=== PATIENT | female | born 1995 | race Caucasian/White ===

== ENCOUNTER 2020-05-10 00:47 | Emergency (ER) | payer SELFPAY ==
[2020-05-10 00:51] VITALS: BP 112/73; PULSE 104; RESP 18; TEMP 36.4; O2SAT 97; BMI 34.5
--- NOTE | 2020-05-10 01:07 | ED_ITS ---
HPI - Allergic Reaction General: Chief complaint: Allergic Reaction Stated complaint: rash Time Seen by Provider: 05/10/20 00:59 History of Present Illness: HPI narrative: Patient comes in today for a wasp sting to the left shoulder. Patient is also been drinking some alcohol. Patient has not taken anything for this food and now developing rash. Patient states that this evening she had been drinking and she noticed a increase in her rash with redness spreading across her body. Patient denies any problems breathing or difficulty swallowing. Patient appears well. Patient appears in no acute distress. Review of Systems General: Reports: 10 or more systems reviewed and unremarkable except in HPI and below Skin/Breast: Reports: rash Physical Exam Const: COMMON NORMALS: no acute distress and patient oriented x3 GENERAL APPEARANCE: cooperative HENMT: COMMON NORMALS: normocephalic, TM's normal bilaterally and Normal external nose present HEAD & SCALP: normal to inspection and normocephalic NOSE: Normal external nose present TYMPANIC MEMBRANE: TM's normal bilaterally MOUTH: Normal oral and palatal mucosa present THROAT: posterior oropharynx normal Eye: GENERAL EYE: appearance normal, both eyes and all related structures Neck/C-Spine: COMMON NORMALS: full ROM Lymph: LYMPHATIC: no lymphadenopathy noted Chest: COMMONS NORMALS: normal inspection of the chest Resp: COMMON NORMALS: normal respiratory effort EFFORT & INSPECTION: Yes able to speak in complete sentences Cardio: COMMON NORMALS: regular rate and regular rhythm RATE: regular rate RHYTHM: regular rhythm GI: COMMON NORMALS: non-tender : COMMON NORMALS: Yes no CVA tenderness BLADDER/KIDNEY EXAM: Yes no CVA tenderness Back/Pelvis: COMMON NORMALS: no CVA tenderness and thoracic and lumbar spine normal to inspection Extremity: COMMON NORMALS: normal to inspection Neuro: COMMON NORMALS: patient oriented x3 and moves all extremities Psych: COMMON NORMALS: mental status grossly normal and cooperative Skin: NARRATIVE SKIN EXAM: Patient has a generalized urticarial rash to the body. Patient has a sting lauren with a small punctate lesion and blister to the left shoulder. Most likely this is a sting from a hornet or yellowjacket. Course Vital Signs: Vital signs: Vital Signs Temperature 97.6 F 05/10/20 00:51 Pulse Rate 104 H 05/10/20 00:51 Respiratory Rate 18 05/10/20 00:51 Blood Pressure 112/73 05/10/20 00:51 Pulse Oximetry 97 07/26/20 00:51 MDM - Allergic Reaction MDM Narrative: Medical decision making narrative: Patient comes in today with complaints of itching and a rash across her whole body. Patient appears well. Lungs are clear to auscultation. Vital signs are normal with good oxygen saturation. On exam we note a sting/insect bite to the left upper shoulder. We also note a generalized urticarial rash to the body and extremities. Differential diagnosis includes but not limited to allergic reaction to insect sting, histamine reaction to alcohol or food product. Patient was given 50 mg of Benadryl and 60 mg of prednisone. Patient was encouraged to drink plenty of fluids with medications. Patient will be continued on prednisone 20 mg twice a day for the next 5 days along with Benadryl 25 mg every 4 hours as needed for itching and rash. Patient reported understanding of care plan and need for follow-up. Discharge Plan Discharge Patient Disposition: Home Clinical Impression: Accidental wasp sting Allergic reaction Qualifiers: Encounter type: initial encounter Qualified Code(s): T78.40XA - Allergy, unspecified, initial encounter Condition: Stable Prescriptions: New diphenhydramine HCl 25 mg capsule 25 mg PO Q4H PRN (Reason: rash and itching) Qty: 30 RF: 0 prednisone 20 mg tablet 20 mg PO BID 5 Days Qty: 10 RF: 0 Referrals: Love Mello MD [Primary Care Provider] - Discharge Diet: Usual diet Discharge Activity: Increase activity as tolerated Patient Instructions: Insect Bite or Sting (ED) Activity Restrictions/Additional Instructions: Drink plenty of fluids. Take steroid twice a day for 5 days. Take diphenhydramine, Benadryl, 25 mg capsule 1 or 2 every 4-6 hours as needed for itching or rash. Drink plenty of water with medication. Use acetaminophen or ibuprofen for pain. Return to the emergency room for difficulty breathing or swallowing. Follow-up with primary care as needed. Stay in a cool environment. Avoid acidic or spicy foods. Avoid rigorous activity. These precautions are recommended as they will increase histamine response and cause an increase in the rash and symptoms. Coding Level of Care Code ED [facility] Firer/Fireman for Kaushik Malave
[2020-05-10] MEDS: diphenhydrAMINE 50 mg Capsule PO (01:08)
[2020-05-10] MEDS: predniSONE 20 mg Tablet 60 MG PO (01:08)
== END 2020-05-10 02:01 | disposition home or self-care (01) ==
PROVIDERS: Emergency Provider Nurse Practitioner Family; PCP Family Medicine
DX: T63.461A Toxic effect of venom of wasps, accidental (unintentional), initial encounter (principal)
CPT/HCPCS: 12345; 99282; 99283; J7512; Q0163

== ENCOUNTER 2020-05-11 10:59 | Emergency (ER) | payer SELFPAY ==
[2020-05-11 11:07] VITALS: BP 106/67; PULSE 99; RESP 18; TEMP 36.7; O2SAT 98; BMI 34.9
--- NOTE | 2020-05-11 11:17 | ED_ITS ---
HPI - Skin/Abscess/Foreign Bdy General: Chief complaint: Skin/Abscess/Foreign Body Stated complaint: LEFT SHOULDER SPIDER BITE? Time Seen by Provider: 05/11/20 11:14 History of Present Illness: HPI narrative: Patient is a 24-year-old female that comes to the ED with pain in redness on the left shoulder. Patient was seen here in the ED on 10 May and treated for wasp/yellowjacket sting. She was given a prescription for diphenhydramine and prednisone to help with pruritic rash. Patient comes to the ED today because she now has pain in the left shoulder with some redness and warmth of the skin as well. Associated symptoms: Deny chills, fever(s), nausea or vomiting Review of Systems Const: Denies: fever(s), chills or fatigue Eyes: Denies: change in vision or eye discomfort ENMT: Denies: throat pain, odynophagia, nasal discharge or nasal congestion Card: Denies: chest pain, palpitations, edema, swelling of feet/ankles, dyspn ea on exertion or orthopnea Resp: Denies: dyspnea, productive cough or non-productive cough GI: Denies: abdominal pain, nausea, vomiting, diarrhea, constipation or hematochezia : Denies: flank pain, dysuria or hematuria Musc: Denies: neck pain, back pain or extremity swelling Skin/Breast: Reports: rash (Pruritic rash on thighs.) and new lesions (Lesion on left shoulder now has an in warm and hard and painful.) Neuro: Denies: headache(s), numbness in extremities or weakness in extremities Physical Exam Const: COMMON NORMALS: no acute distress, patient oriented x3 and alert GENERAL APPEARANCE: cooperative and comfortable HENMT: COMMON NORMALS: normocephalic HEAD & SCALP: normocephalic MOUTH: Normal oral and palatal mucosa present THROAT: posterior oropharynx normal and uvula midline Eye: COMMON NORMALS: Equal, round and reactive pupils present PUPIL: Yes Equal, round and reactive pupils present Neck/C-Spine: COMMON NORMALS: supple GENERAL: Yes normal visual inspection Resp: COMMON NORMALS: normal respiratory effort, No retractions, No use of accessory muscles and clear to auscultation bilaterally AUSCULTATION: clear to auscultation bilaterally Cardio: COMMON NORMALS: regular rate, regular rhythm, S1 normal heart sound present, S2 normal heart sound present, No gallops present (Cardio), No clicks present (Cardio), No murmurs present (Cardio) and Peripheral pulses 2+ throughout RATE: regular rate RHYTHM: regular rhythm HEART SOUNDS: S1 normal heart sound present and S2 normal heart sound present PERIPHERAL PULSES: Peripheral pulses 2+ throughout GI: COMMON NORMALS: Normal to inspection, nondistended, normoactive bowel sounds present, Soft to palpation, non-tender and no masses PALPATION: Yes Soft to palpation : COMMON NORMALS: Yes no CVA tenderness BLADDER/KIDNEY EXAM: Yes no CVA tenderness Back/Pelvis: COMMON NORMALS: no CVA tenderness Extremity: GENERAL: Yes normal exam except as noted LEFT UPPER EXTREMITY: Yes shoulder joint Left shoulder joint: Yes inspection (Left shoulder has an area of skin that has erythema, warmth and is tender to the touch. It is also nonfluctuant and indurated.) Neuro: COMMON NORMALS: patient oriented x3 and moves all extremities SENSORIUM/ORIENTATION: Yes alert Skin: NARRATIVE SKIN EXAM: Left shoulder has an area of skin that has erythema, warmth and is tender to the touch. It is also nonfluctuant and indurated. Lesion on left shoulder suggestive of cellulitis. Patient also has pruritic hives-like rash on thighs. GENERAL SKIN EXAM: dry skin Course Vital Signs: Vital signs: Vital Signs Temperature 98.1 F 05/11/20 11:07 Pulse Rate 99 05/11/20 11:07 Respiratory Rate 18 05/11/20 11:07 Blood Pressure 106/67 05/11/20 11:07 Pulse Oximetry 98 05/11/20 11:07 MDM - Skin/Abscess/Foreign Bdy MDM Narrative: Medical decision making narrative: Patient is a 24-year-old female comes to the ED with lesion on left shoulder and pruritic rash on thighs. Patient was seen here in the ED on May 10 for same complaint. She was diagnosed with wasp sting and sent home with a prescription of prednisone and diphenhydramine for pruritic rash. Physical exam shows left shoulder lesion with skin that is warm, erythematous and tender to the touch. Area is also nonfluctuant and indurated. Patient also has pruritic hives-like rash on thighs which she currently is taking diphenhydramine and prednisone to treat. Patient diagnosed with cellulitis and sent home with a prescription for cephalexin. Patient currently is taking diphenhydramine and prednisone for pruritic rash. Patient told to follow-up with PCP in 5 to 7 days for reevaluation. Return to the ED if symptoms worsen. Patient understood and agreed with plan. Discharge Plan Discharge Patient Disposition: Home Clinical Impression: Cellulitis Qualifiers: Site of cellulitis: extremity Site of cellulitis of extremity: axilla Laterality: left Qualified Code(s): L03.112 - Cellulitis of left axilla Condition: Stable Prescriptions: New cephalexin 500 mg capsule 500 mg PO TID 7 Days Qty: 21 RF: 0 No Action diphenhydramine HCl 25 mg capsule 25 mg PO Q4H PRN (Reason: rash and itching) Qty: 30 RF: 0 prednisone 20 mg tablet 20 mg PO BID 5 Days Qty: 10 RF: 0 Discharge Orders: Discharge Order (Routine); Ordered 05/11/20 Ordered By: Osbaldo Lopez Referrals: Love Mello MD [Primary Care Provider] - Discharge Diet: Regular Discharge Activity: Resume usual activity Patient Instructions: Cellulitis (ED) Activity Restrictions/Additional Instructions: Follow-up with medical provider as directed in 7 days. Take medications as prescribed. Continue taking previously prescribed prednisone and Diphenhydramine to help with itchy rash. Return to the ER or your medical provider if condition worsens. Please read and understand discharge instructions. If any questions, please ask. Discharge Date/Time: 05/11/20 11:48 Coding Level of Care Code ED Potline Monitor for Kaushik Fwjosh Exam Comprehensive
[2020-05-11] MEDS: HYDROcodone-acetaminophen 7.5-325 mg Tablet 1 TAB PO (11:44)
[2020-05-11] MEDS: cephALEXin 500 mg Capsule PO (11:44)
== END 2020-05-11 11:48 | disposition home or self-care (01) ==
PROVIDERS: Emergency Provider Physician Assistant; PCP Family Medicine
DX: L03.112 Cellulitis of left axilla (principal)
CPT/HCPCS: 12345; 99281; 99283

== ENCOUNTER → 2020-06-25 11:00 | Outpatient (BNVA) | payer MEDICAID, SELFPAY | PROVIDERS: PCP Family Medicine; Visit Provider Internal Medicine | DX: Z11.59 Encounter for screening for other viral diseases (principal) | CPT/HCPCS: 87635 ==

== ENCOUNTER → 2020-10-20 15:36 | Outpatient (BNVA) | payer OTHER, SELFPAY | PROVIDERS: PCP Family Medicine; Visit Provider Nurse Practitioner Family | DX: Z20.828 Contact with and (suspected) exposure to other viral communicable diseases (principal) | CPT/HCPCS: 87635 ==

== ENCOUNTER → 2021-10-27 16:39 | Outpatient (BNVA) | payer BC, MEDICAID, SELFPAY | PROVIDERS: PCP Family Medicine; Visit Provider Nurse Practitioner Family | DX: Z20.822 Contact with and (suspected) exposure to COVID-19 (principal) | CPT/HCPCS: 87635 ==

== ENCOUNTER 2023-04-04 20:50 | Emergency (ER) | payer BC, MEDICAID, SELFPAY ==
[2023-04-04 20:57] VITALS: BP 130/72; PULSE 101; RESP 18; TEMP 36.7; O2SAT 97
--- NOTE | 2023-04-04 21:20 | W.ED.SKABFB ---
HPI - Skin/Abscess/Foreign Bdy General: Chief complaint: Skin/Abscess/Foreign Body Stated complaint: pain in left armpit Time Seen by Provider: 04/04/23 21:04 History of Present Illness: 27-year-old female comes in today with swelling and redness to the left axilla. Patient reports history of prior abscess. Patient denies any chronic medical problems. Patient appears nontoxic. Patient appears in mild to moderate pain. Associated symptoms: Deny fever(s) Review of Systems General: Reports: 10 or more systems reviewed and unremarkable except in HPI and below Const: Denies: fever(s) Musc: Reports: extremity pain Skin/Breast: Reports: erythema Physical Exam Const: COMMON NORMALS: patient oriented x3 HENMT: COMMON NORMALS: normocephalic HEAD & SCALP: normocephalic Neck/C-Spine: COMMON NORMALS: full ROM Resp: COMMON NORMALS: normal respiratory effort and clear to auscultation bilaterally AUSCULTATION: clear to auscultation bilaterally Cardio: COMMON NORMALS: regular rate and regular rhythm RATE: regular rate RHYTHM: regular rhythm Back/Pelvis: COMMON NORMALS: thoracic and lumbar spine normal to inspection Extremity: LEFT UPPER EXTREMITY: Yes upper arm (Left axilla with erythema approximately 6 cm x 3 cm central fluctuant) Neuro: COMMON NORMALS: patient oriented x3 Skin: LESIONS: lesion noted (Abscess left axilla) Procedures Abscess I/D Site: upper extremity Side (if applicable): left Local Anesthetic: lidocaine 1% and with epi Amount of anesthesia used (mL): 10 Technique: incised with #11 blade Amount of fluid expressed (mL): 30 Irrigation: Yes Packing used?: none Course Vital Signs: Vital signs: Vital Signs Temperature 98.0 F 04/04/23 20:57 Pulse Rate 101 H 04/04/23 20:57 Respiratory Rate 18 04/04/23 20:57 Blood Pressure 130/72 04/04/23 20:57 Pulse Oximetry 97 04/04/23 20:57 Oxygen Delivery Me thod Room Air 04/04/23 20:57 MDM - Skin/Abscess/Foreign Bdy Medicial Decision Making 27-year-old female comes in today with abscess to the left axilla. On exam patient has an area of redness with central fluctuance. Differential diagnosis includes but not limited to cellulitis, abscess, lymphadenitis, thrombophlebitis. Incision and drainage was performed on the area with positive purulent drainage and improvement of pain. Patient tolerated well. Patient be kept on clindamycin 450 twice a day for 7 days. Patient was given 5 tablets of hydrocodone for severe pain. Patient reported understanding of care plan and need for follow-up or return to the ER. Discharge Plan Discharge Patient Disposition: Home Clinical Impression: Abscess of skin or subcutaneous tissue Qualifiers: Site of cutaneous abscess: extremity Site of cutaneous abscess of extremity: axilla Laterality: left Qualified Code(s): L02.412 - Cutaneous abscess of left axilla Condition: Stable Prescriptions: New clindamycin HCl 150 mg capsule 450 mg PO 2XD 7 Days Qty: 42 0RF hydrocodone-acetaminophen 5-325 mg tablet 1 tab PO Q8H PRN (Reason: pain (scale score 7-10)) Qty: 5 0RF Discharge Orders: Discharge ED (Routine); Ordered 04/04/23 Ordered By: José Luis Rushing Referrals: Love Mello MD [Primary Care Provider] - Discharge Diet: Usual diet Discharge Activity: Increase activity as tolerated Patient Instructions: Abscess Incision and Drainage (DC), Opioid Safety Activity Restrictions/Additional Instructions: Cover wound with dressing while it is draining. Use absorbent gauze. Drink plenty of water with medication. Follow-up with primary care as needed. Return to ED for worsening symptoms such as high fever greater than 100.4, nausea and vomiting, severe swelling and pain. Coding Level of Care Code ED Sweet Pickle Maker for Kaushik Malave
[2023-04-04] MEDS: ondansetron 4 MG Tablet PO (22:10)
[2023-04-04] MEDS: clindamycin 150 mg Capsule 450 MG PO (22:10)
[2023-04-04] MEDS: HYDROcodone-acetaminophen 7.5-325 mg Tablet 1 TAB PO (22:10)
== END 2023-04-04 22:15 | disposition home or self-care (01) ==
PROVIDERS: Emergency Provider Nurse Practitioner Family; PCP Family Medicine
DX: L02.412 Cutaneous abscess of left axilla (principal)
CPT/HCPCS: 10060; 99283; Q0162

== ENCOUNTER → 2025-05-26 13:02 | Outpatient (BNVA) | payer BC, MEDICAID, SELFPAY | PROVIDERS: PCP Family Medicine; Visit Provider Emergency Medicine | DX: N92.6 Irregular menstruation, unspecified (principal); R10.2 Pelvic and perineal pain | CPT/HCPCS: 81025; 81513; 84702; 87481; 87491; 87591; 87661 ==